=== PATIENT | female | born 1955 | race Caucasian/White ===

== ENCOUNTER 2024-08-08 13:34 | Inpatient (IN) | payer MEDICARE ==
[~2024-08-08] VITALS: Ht 165.1 cm; Wt 63.5 kg
[2024-08-08 12:47] VITALS: BP 146/69; TEMP 97.9; O2SAT 95
[2024-08-08] MEDS ORDERED: ATEN25TA PO (14:37)
[2024-08-08] MEDS ORDERED: PANT40TA49 PO (14:37)
[2024-08-08] MEDS ORDERED: ACET-3117 PO (14:37)
[2024-08-08] MEDS ORDERED: ZINC113P3 TP (14:37)
[2024-08-08] MEDS ORDERED: ENOX40DI SQ (14:37)
[2024-08-08] MEDS ORDERED: MAG-65 PO (14:37)
[2024-08-08] MEDS ORDERED: HYDR-3972 PO (14:37)
[2024-08-08] MEDS ORDERED: NORT75CA PO (14:37)
[2024-08-08] MEDS ORDERED: THERA HONEY TP (14:45)
[2024-08-08] MEDS ORDERED: ACET325T53 PO (14:45)
[2024-08-08] MEDS ORDERED: MAGN400O6 PO (14:50)
[2024-08-08] MEDS ORDERED: SIMETH PO SCH (15:00)
[2024-08-08] MEDS ORDERED: ACETAMINOPHEN 325 MG TABLET-SA PATIENTS-PAIN ONLY PO PRN (15:00)
[2024-08-08] MEDS ORDERED: AL HYDROX PO SCH (15:00)
[2024-08-08] MEDS ORDERED: MAG HYDROX PO SCH (15:00)
[2024-08-08] MEDS ORDERED: [UNRECOGNIZED DRUG - OTHER] PO SCH (15:00)
[2024-08-08] MEDS ORDERED: MAG HYDROX/AL HYDROX/SIMETH 30 ML LIQUID UDC PO PRN (15:15)
[2024-08-08] MEDS: HYDROCODONE/APAP 5-325MG TABLET PO PRN (15:55)
[2024-08-08 16:00] VITALS: BP 151/67; TEMP 98; O2SAT 93
[2024-08-08] MEDS: BENZOCAINE/MENTH/CETYLPYRD LOZENGE MM PRN (18:08)
[2024-08-08 20:50] VITALS: BP 131/56; TEMP 99; O2SAT 93
[2024-08-08] MEDS: ATENOLOL 25 MG TABLET PO SCH (21:09)
[2024-08-08] MEDS: OXYCODONE HCL 5 MG TABLET PO PRN (21:10)
[2024-08-08] MEDS: ENOXAPARIN SODIUM 40 MG/0.4 ML DISP.SYRIN SQ SCH (21:14)
[2024-08-08] MEDS: NORTRIPTYLINE HCL 25 MG CAPSULE PO SCH (21:52)
[2024-08-09 06:22] LABS: BASOPHILS % (AUTO) 0.6 % (0.0-2.0); EOSINOPHILS # (AUTO) 0.3 K/uL (0.0-0.7); EOSINOPHILS % (AUTO) 3.3 % (0.0-7.0); HEMATOCRIT 33.1 % (31.2-41.9); HEMOGLOBIN 11.5 g/dL (10.9-14.3); LYMPHOCYTES # (AUTO) 1.8 K/uL (0.8-4.8); LYMPHOCYTES % (AUTO) 22.8 % (20.5-51.5); MEAN CORPUSCULAR HEMOGLOBIN 32.9 uug (24.7-32.8); MEAN CORPUSCULAR HGB CONC 35 g/dL (32.3-35.6); MEAN CORPUSCULAR VOLUME 94.4 fL (75.5-95.3); MONOCYTES # (AUTO) 0.7 K/uL (0.1-1.30); MONOCYTES % (AUTO) 8.9 % (0.0-11.0); NEUTROPHILS % (AUTO) 64.4 % (38.5-71.5); PLATELET COUNT (AUTO) 269 K/uL (179-408); RED CELL DISTRIBUTION WIDTH 12.9 % (12.3-17.7); WHITE BLOOD COUNT (AUTO) 7.8 K/uL (3.8-11.8)
[2024-08-09 06:30] VITALS: BP 119/50; TEMP 97.9; O2SAT 93
[2024-08-09] MEDS: PANTOPRAZOLE SODIUM 40 MG TABLET.DR PO SCH (06:45)
[2024-08-09 06:57] LABS: CALCIUM 8.5 mg/dL (8.5-10.1); CARBON DIOXIDE 27 mmol/L (21-32); CHLORIDE 104 mmol/L (98-107); CREATININE 0.9 mg/dL (0.6-1.3); GLUCOSE 94 mg/dL (74-106); MAGNESIUM 1.7 mg/dL (1.8-2.4); PHOSPHOROUS 5.9 mg/dL (2.5-4.9); POTASSIUM 4.3 mmol/L (3.5-5.1); SODIUM SERUM 139 mmol/L (136-145); UREA NITROGEN, BLOOD 13 mg/dL (7-18)
[2024-08-09] MEDS: MAGNESIUM OXIDE 400 MG TABLET PO ONE (10:40)
[2024-08-09 15:31] VITALS: BP 131/56; TEMP 97.6; O2SAT 93
[2024-08-09 20:00] VITALS: BP 123/79; TEMP 97.5; O2SAT 98
[2024-08-09] MEDS: MAGNESIUM HYDROXIDE 30 ML LIQUID UDC PO PRN (22:00)
[2024-08-10 06:44] LABS: BASOPHILS % (AUTO) 0.5 % (0.0-2.0); EOSINOPHILS # (AUTO) 0.1 K/uL (0.0-0.7); EOSINOPHILS % (AUTO) 1.8 % (0.0-7.0); HEMATOCRIT 33.2 % (31.2-41.9); HEMOGLOBIN 11.4 g/dL (10.9-14.3); LYMPHOCYTES # (AUTO) 1.5 K/uL (0.8-4.8); LYMPHOCYTES % (AUTO) 19.3 % (20.5-51.5); MEAN CORPUSCULAR HEMOGLOBIN 32.6 uug (24.7-32.8); MEAN CORPUSCULAR HGB CONC 34 g/dL (32.3-35.6); MEAN CORPUSCULAR VOLUME 94.8 fL (75.5-95.3); MONOCYTES # (AUTO) 0.8 K/uL (0.1-1.30); MONOCYTES % (AUTO) 9.9 % (0.0-11.0); NEUTROPHILS # (AUTO) 5.3 K/uL (1.8-8.9); NEUTROPHILS % (AUTO) 68.5 % (38.5-71.5); PLATELET COUNT (AUTO) 277 K/uL (179-408); RED CELL DISTRIBUTION WIDTH 13.1 % (12.3-17.7); WHITE BLOOD COUNT (AUTO) 7.8 K/uL (3.8-11.8)
[2024-08-10 06:52] LABS: CARBON DIOXIDE 31 mmol/L (21-32); CHLORIDE 104 mmol/L (98-107); CREATININE 0.9 mg/dL (0.6-1.3); GLUCOSE 111 mg/dL (74-106); MAGNESIUM 1.8 mg/dL (1.8-2.4); POTASSIUM 4.3 mmol/L (3.5-5.1); SODIUM SERUM 140 mmol/L (136-145); UREA NITROGEN, BLOOD 15 mg/dL (7-18)
[2024-08-10 16:00] VITALS: BP 117/58; TEMP 98.8; O2SAT 96
[2024-08-10 20:00] VITALS: BP 147/65; TEMP 98; O2SAT 99
[2024-08-11 05:51] VITALS: BP 147/75; TEMP 97.7; O2SAT 98
[2024-08-11] MEDS: MEDIHONEY= THERAHONEY 1.5 OZ TUBE TOP SCH (13:51)
[2024-08-11 16:00] VITALS: BP_SYST 126; BP_SYST 147; BP_SYST 152; BP_DIAS 80; BP_DIAS 81; BP_DIAS 86; TEMP 98.3
[2024-08-11 16:23] VITALS: BP 121/68; TEMP 97.7; O2SAT 95
[2024-08-11 20:02] VITALS: BP 118/49; TEMP 97.7; O2SAT 96
[2024-08-12 06:53] VITALS: BP 139/58; TEMP 97.8; O2SAT 95
[2024-08-12 16:15] VITALS: BP 123/50; TEMP 97.9; O2SAT 95
[2024-08-12 19:40] VITALS: BP 114/45; TEMP 97.9; O2SAT 100
[2024-08-12] MEDS: MORPHINE SULFATE SR 15 MG TABLET.SA PO SCH (21:54)
[2024-08-13 06:16] VITALS: BP 157/76; TEMP 98.2; O2SAT 97
[2024-08-13] MEDS: HYDROCODONE/APAP 10-325 MG TABLET PO PRN (06:49)
[2024-08-13 07:39] VITALS: BP 107/54; TEMP 97.6; O2SAT 96
[2024-08-13] MEDS: LIDOCAINE 5% PATCH TD SCH (08:21)
[2024-08-13 16:00] VITALS: BP 130/60; TEMP 97.7; O2SAT 96
[2024-08-13] MEDS ORDERED: MAGN500C17 PO (17:26)
[2024-08-13] MEDS ORDERED: QULIPTA 60 MG PO (17:26)
[2024-08-13] MEDS ORDERED: CHOL-35 PO (17:26)
[2024-08-13 20:00] VITALS: BP 125/56; TEMP 97.6; O2SAT 97
[2024-08-13] MEDS: MAGNESIUM OXIDE 400 MG TABLET PO SCH (20:21)
[2024-08-13] MEDS: [UNRECOGNIZED DRUG - OTHER] PO SCH (20:22)
[2024-08-13] MEDS: ATOGEPANT 60 MG PO SCH (20:22)
[2024-08-14 06:00] VITALS: BP 123/54; TEMP 97.6; O2SAT 95
[2024-08-14 07:17] LABS: BASOPHILS # (AUTO) 0.1 K/UL (0.0-0.2); EOSINOPHILS # (AUTO) 0.2 K/uL (0.0-0.7); EOSINOPHILS % (AUTO) 3.3 % (0.0-7.0); HEMATOCRIT 33.9 % (31.2-41.9); HEMOGLOBIN 11.9 g/dL (10.9-14.3); LYMPHOCYTES # (AUTO) 1.6 K/uL (0.8-4.8); LYMPHOCYTES % (AUTO) 23.3 % (20.5-51.5); MEAN CORPUSCULAR HEMOGLOBIN 33.2 uug (24.7-32.8); MEAN CORPUSCULAR HGB CONC 35 g/dL (32.3-35.6); MEAN CORPUSCULAR VOLUME 94.8 fL (75.5-95.3); MONOCYTES # (AUTO) 0.6 K/uL (0.1-1.30); MONOCYTES % (AUTO) 8.9 % (0.0-11.0); NEUTROPHILS # (AUTO) 4.3 K/uL (1.8-8.9); NEUTROPHILS % (AUTO) 63.5 % (38.5-71.5); PLATELET COUNT (AUTO) 364 K/uL (179-408); RED BLOOD CELL COUNT(AUTO) 3.57 MIL/uL (3.63-4.92); WHITE BLOOD COUNT (AUTO) 6.8 K/uL (3.8-11.8)
[2024-08-14 07:26] LABS: DIFFERENTIAL COMMENT 1
[2024-08-14 08:00] LABS: THYROID STIMULATING HORMONE 1.683 mIU/mL (0.358-3.740)
[2024-08-14 08:16] LABS: ALANINE AMINOTRANSFERASE 38 U/L (14-59); ALBUMIN 2.8 g/dL (3.4-5.0); ALKALINE PHOSPHATASE 112 U/L (50-136); ASPARTATE AMINOTRANSFERASE 18 U/L (15-37); BILIRUBIN,TOTAL 0.3 mg/dL (0.2-1.0); CALCIUM 9.1 mg/dL (8.5-10.1); CARBON DIOXIDE 29 mmol/L (21-32); CHLORIDE 104 mmol/L (98-107); CHOLESTEROL 230 mg/dL (<200); CREATININE 0.8 mg/dL (0.6-1.3); GLUCOSE 103 mg/dL (74-106); HDL CHOLESTEROL 46 mg/dL (40-60); PHOSPHOROUS 3.6 mg/dL (2.5-4.9); POTASSIUM 4.5 mmol/L (3.5-5.1); SODIUM SERUM 139 mmol/L (136-145); TOTAL PROTEIN, SERUM 6.5 g/dL (6.4-8.2); TRIGLYCERIDES 225 MG/DL (30-150); UREA NITROGEN, BLOOD 15 mg/dL (7-18)
[2024-08-14] MEDS: CHOLECALCIFEROL 1,000 UNIT TABLET PO SCH (09:21)
[2024-08-14] MEDS: ONDANSETRON HCL 4 MG TABLET PO PRN (09:21)
[2024-08-14 16:31] VITALS: BP 117/52; TEMP 97.6; O2SAT 98
[2024-08-14 23:12] VITALS: BP 140/50; TEMP 97.8; O2SAT 98
[2024-08-15] MEDS: ACETAMINOPHEN 325 MG TABLET PO PRN (12:36)
[2024-08-15 15:33] VITALS: BP 109/57; TEMP 97.8; O2SAT 97
[2024-08-15] MEDS ORDERED: METOCLOPRAMIDE HCL 10 MG TABLET PO PRN (17:45)
[2024-08-15 19:50] VITALS: BP 134/75; TEMP 97.7; O2SAT 98
[2024-08-16 16:14] VITALS: BP 112/48; TEMP 97.8; O2SAT 98
[2024-08-16 20:14] VITALS: BP 130/63; TEMP 97.3; O2SAT 97
[2024-08-16] MEDS: HYDROCODONE/APAP 5-325MG TABLET PO PRN (21:17)
[2024-08-17 16:13] VITALS: BP 127/50; TEMP 98; O2SAT 100
[2024-08-17 20:00] VITALS: BP 148/67; TEMP 97.4; O2SAT 99
[2024-08-18 06:00] VITALS: BP 147/75; TEMP 97.9; O2SAT 98
[2024-08-18] MEDS: LIDOCAINE 5% PATCH TD SCH (08:33)
[2024-08-18 15:46] VITALS: BP 147/63; TEMP 97.6; O2SAT 100
[2024-08-18 20:00] VITALS: BP 141/71; TEMP 97.9; O2SAT 99
[2024-08-19 20:00] VITALS: BP 130/70; TEMP 97.7; O2SAT 99
[2024-08-20 06:00] VITALS: BP_SYST 132; BP_SYST 98; BP_DIAS 69; TEMP 98; O2SAT 94
[2024-08-20] MEDS ORDERED: ATORVASTATIN 20 MG TABLET PO SCH (21:00)
== END 2024-08-20 12:00 | disposition home health service (06) | DRG 560 ==
PROVIDERS: ADMIT Physical Medicine & Rehabilitation Pain Medicine; ATTEND Physical Medicine & Rehabilitation Pain Medicine
DX: M80.0AXD Age-related osteoporosis with current pathological fracture, other site, subsequent encounter for fracture with routine healing (principal); D68.59 Other primary thrombophilia; M80.08XD Age-related osteoporosis with current pathological fracture, vertebra(e), subsequent encounter for fracture with routine healing; W01.0XXD Fall on same level from slipping, tripping and stumbling without subsequent striking against object, subsequent encounter; G43.909 Migraine, unspecified, not intractable, without status migrainosus; R26.89 Other abnormalities of gait and mobility; G89.18 Other acute postprocedural pain; E78.00 Pure hypercholesterolemia, unspecified; E83.42 Hypomagnesemia
CPT/HCPCS: 36415; 83735; 84100; 84443; 85025; 97535-GO-CO; A4663; J1650; Q0162